=== PATIENT | male | born 1985 | race Caucasian/White ===

== ENCOUNTER 2018-10-26 21:15 | Emergency (ER) | payer OTHER ==
[~2018-10-26] VITALS: Ht 172.7 cm; Wt 59.0 kg
[2018-10-26 21:25] VITALS: BP_SYST 154
--- NOTE | 2018-10-26 21:30 | NUR ---
Patient to ER bed 7 to for evaluation. Patient refused to gown. Side rails up.
[2018-10-26] MEDS ORDERED: GLU500 PO (21:41)
--- NOTE | 2018-10-26 21:41 | NUR ---
Patient arrived from home with a laceration on the right middle finger. Stated he picked a trash bag at home and sliced his finger on a piece of glass. AAOx4 and able to verbalize his needs. Denies any cardiac issues, sob, N/V, chills, or fever. patient is ambulatory. Previous hx of Diabetes. Refuses blood sugar check.
[2018-10-26] MEDS ORDERED: GLIP-212 PO (21:42)
--- NOTE | 2018-10-26 21:50 | NUR ---
ER at bedside examining patient.
--- NOTE | 2018-10-26 21:54 | NUR ---
Patient refusing any blood work to be done and no needle pokes.
--- NOTE | 2018-10-26 21:56 | NUR ---
Called [employer] [facility]itton at [phone], spoke with Zaria. Stated no needles in the trash. Only plates, glass, forks, spoons, and possibly knives. Conveyed information to ER Dr Andrade.
[2018-10-26] MEDS ORDERED: ACETAMINOPHEN 325 MG TABLET PO ONE (22:00)
[2018-10-26 23:05] VITALS: BP_SYST 145
--- NOTE | 2018-10-26 23:05 | NUR ---
Patient given written and verbal discharge instructions and verbalizes understanding. ER MD discussed with patient the results and treatment provided. Patient in stable condition. ID arm band removed. Rx of [place] given. Patient educated on pain management and to follow up with PMD. Pain Scale 0/10. Opportunity for questions provided and answered. Medication side effect fact sheet provided.
== END 2018-10-26 23:05 | disposition home or self-care (01) ==
LOC: SED 21:15
DX: S61.214A Laceration without foreign body of right ring finger without damage to nail, initial encounter (principal); E11.9 Type 2 diabetes mellitus without complications; R03.0 Elevated blood-pressure reading, without diagnosis of hypertension; W26.8XXA Contact with other sharp object(s), not elsewhere classified, initial encounter; Y93.89 Activity, other specified; Y92.89 Other specified places as the place of occurrence of the external cause; Y99.8 Other external cause status
CPT/HCPCS: 99283

== ENCOUNTER 2018-10-28 19:41 | Emergency (ER) | payer OTHER ==
[~2018-10-28] VITALS: Ht 160 cm; Wt 59.0 kg
[~2018-10-28 19:41] MED LIST: GLIP-212 PO; GLU500 PO
[2018-10-28 19:58] VITALS: BP_SYST 106
--- NOTE | 2018-10-28 23:00 | NUR ---
Patient to ER hallway bed 1 to [facility] for evaluation. Side rails up. Report given from AXEL Oliver.
[2018-10-28] MEDS ORDERED: cefTRIAXone 1 GM VIAL IM ONE (23:30)
[2018-10-28] MEDS ORDERED: KETOROLAC TROMETHAMINE 60 MG/2 ML VIAL IM ONE (23:30)
--- NOTE | 2018-10-28 23:30 | NUR ---
Pt came into the ED for R middle finger pain which began today. Pt was seen a few days ago for a laceration which was repaired with dermabond. Pt reports pain is 6/10. Denies n/v/d or fever. No other complaints/injuries noted. Will cont. to monitor.
--- NOTE | 2018-10-29 | NUR ---
ER at bedside examining patient.
--- NOTE | 2018-10-29 00:12 | NUR ---
Pt medicated with keflex PO and Toradol IM per MD order. Tolerated well. Will cont. to monitor.
[2018-10-29] MEDS ORDERED: CEPHALEXIN 500 MG CAPSULE PO ONE (00:15)
[2018-10-29 01:38] VITALS: BP_SYST 106
--- NOTE | 2018-10-29 01:38 | NUR ---
Patient given written and verbal discharge instructions and verbalizes understanding. ER MD Dr. Andrade discussed with patient the results and treatment provided. Patient in stable condition. ID arm band removed. Rx of keflex and norco po given. Patient educated on pain management and to follow up with PMD within 2-3 days. Pain Scale 0/10. Opportunity for questions provided and answered. Medication side effect fact sheet provided.
== END 2018-10-29 01:38 | disposition home or self-care (01) ==
LOC: SED 19:41
DX: L03.011 Cellulitis of right finger (principal); E11.9 Type 2 diabetes mellitus without complications; Z79.4 Long term (current) use of insulin
CPT/HCPCS: 73140; 96372; 99283; J1885